=== PATIENT | female | born 1995 | race Two or more races ===

== ENCOUNTER 2024-08-10 19:14 | Inpatient (IN) | payer OTHER ==
[~2024-08-10] VITALS: Ht 160 cm; Wt 102.1 kg
[2024-08-10 18:45] VITALS: BP 107/73
[2024-08-10] MEDS ORDERED: PRENATAL TABLE1 EAC1 PO (19:22)
[2024-08-10] MEDS ORDERED: AMPICILLIN SODIUM 2,000 MG in 0.9 % SODIUM CHLORIDE 100 ML IV SCH (19:26)
[2024-08-10] MEDS ORDERED: RINGERS SOLUTION,LACTATED 1,000 ML IV SCH (19:30)
[2024-08-10] MEDS ORDERED: BETAMETHASONE ACETATE,SOD PHOS 30 MG/5 ML ML IM SCH (20:00)
[2024-08-10 20:35] LABS: URINE APPEARANCE Cloudy; URINE BILIRRUBIN Small (NEGATIVE); URINE BLOOD Moderate; URINE COLOR Dark Yellow; URINE GLUCOSE Negative (NEGATIVE); URINE KETONE Trace (NEGATIVE); URINE LEUKOCYTE Small; URINE NITRATE Negative; URINE PROTEIN 30 (NEGATIVE)
[2024-08-10 20:37] LABS: HEMOGLOBIN 12.6 g/dL (12.0-15.00); MEAN CELL VOLUME 87.2 fL (80.00-100.00); MEAN CORPUSCULAR HEMOGLOBIN 29.6 pg (27.00-32.0); MEAN CORPUSCULAR HGB CONC 33.9 g/dl (32.0-36.0); PLATELET COUNT 325 K/uL (150-450); RED BLOOD COUNT 4.25 M/uL (4.00-6.00); RED CELL DISTRIBUTION WIDTH 13.8 % (11.5-14.5)
[2024-08-10 20:38] LABS: URINE BACTERIA 2357.2 uL (0.0-1933); URINE EPITHELIAL CELLS 43.8 uL (0.0-38.8); URINE RBC 395.8 uL (0.0-20.8); URINE WBC 26.7 uL (0.0-23.2)
[2024-08-10 20:55] LABS: INR 0.96; PARTIAL THROMBOPLASTIN TIME 26.8 SECONDS (22.0-34.0); PROTHROMBIN TIME 10.5 SECONDS (9.0-11.5); URINE CAST 0.29 uL (0.0-1.40)
[2024-08-10 20:56] LABS: URINE CRYSTALS MODERATE /HPF
[2024-08-10 21:01] LABS: ALBUMIN 2.6 gm/dL (3.4-5.0); BILIRUBIN TOTAL 0.23 mg/dL (0.3-1.2); CALCIUM 8.9 mg/dL (8.5-10.1); CREATININE SERUM 0.55 mg/dL (0.55-1.02); GFR 133.61; GLOBULINA 3.6 G/DL (2.4-3.5); TOTAL PROTEIN 6.2 gm/dL (6.4-8.2)
[2024-08-10 23:06] VITALS: BP 92/57
[2024-08-10] MEDS ORDERED: AMPICILLIN SODIUM 2,000 MG VIAL ONE (23:37)
[2024-08-11 04:00] VITALS: BP 88/45
[2024-08-11 06:10] VITALS: BP 94/55; O2SAT 97
== END 2024-08-11 08:46 | disposition left against medical advice (07) | DRG 833 ==
LOC: LDR 19:14
PROVIDERS: ADMIT Obstetrics & Gynecology; ATTEND Obstetrics & Gynecology
PROC: 4A1HXCZ Monitoring of Products of Conception, Cardiac Rate, External Approach (ICD-10-PCS; principal; 2024-08-10)
DX: O26.893 Other specified pregnancy related conditions, third trimester (principal); R10.2 Pelvic and perineal pain; Z3A.32 32 weeks gestation of pregnancy; Z53.29 Procedure and treatment not carried out because of patient's decision for other reasons

== ENCOUNTER 2024-09-06 09:09 | Inpatient (IN) | payer OTHER ==
[~2024-09-06] VITALS: Ht 160 cm; Wt 90.7 kg
[2024-09-06 08:46] VITALS: BP 112/77
[~2024-09-06 09:09] MED LIST: PRENATAL TABLE1 EAC1 PO
[2024-09-06] MEDS ORDERED: CHILDREN'S ASPI81 MG PO (09:29)
[2024-09-06] MEDS ORDERED: ACETAMINOPHEN 500 MG GEL..CAP PO PRN (09:30)
[2024-09-06] MEDS ORDERED: RINGERS SOLUTION,LACTATED 1,000 ML IV SCH (09:30)
[2024-09-06 10:05] LABS: PH,URINE 6.5 (5.0-8.0); URINE APPEARANCE Cloudy; URINE BILIRRUBIN Small (NEGATIVE); URINE BLOOD Large; URINE COLOR Dark Yellow; URINE GLUCOSE Negative (NEGATIVE); URINE LEUKOCYTE Small; URINE NITRATE Negative; URINE PROTEIN 30 (NEGATIVE)
[2024-09-06 10:08] LABS: HEMATOCRIT 37.1 % (36.0-45.00); HEMOGLOBIN 12.5 g/dL (12.0-15.00); MEAN CELL VOLUME 85.9 fL (80.00-100.00); MEAN CORPUSCULAR HEMOGLOBIN 28.8 pg (27.00-32.0); MEAN CORPUSCULAR HGB CONC 33.6 g/dl (32.0-36.0); PLATELET COUNT 304 K/uL (150-450); RED BLOOD COUNT 4.32 M/uL (4.00-6.00); RED CELL DISTRIBUTION WIDTH 14.1 % (11.5-14.5); URINE BACTERIA 401.4 uL (0.0-1933); URINE EPITHELIAL CELLS 23.2 uL (0.0-38.8); URINE RBC 10496.3 uL (0.0-20.8); URINE WBC 23.9 uL (0.0-23.2)
[2024-09-06 10:21] LABS: URINE CAST 0.44 uL (0.0-1.40); URINE KETONE >=160 (NEGATIVE)
[2024-09-06 10:22] LABS: URINE CRYSTALS FEW /HPF
[2024-09-06 10:32] LABS: ALBUMIN 2.7 gm/dL (3.4-5.0); BILIRUBIN TOTAL 0.41 mg/dL (0.3-1.2); CALCIUM 9.3 mg/dL (8.5-10.1); CREATININE SERUM 0.79 mg/dL (0.55-1.02); GFR 87.97; GLOBULINA 3.5 G/DL (2.4-3.5); POTASSIUM 4.4 mEq/L (3.5-5.1); TOTAL PROTEIN 6.2 gm/dL (6.4-8.2)
[2024-09-06 11:25] VITALS: BP 112/77
[2024-09-06 12:00] VITALS: BP 106/63
[2024-09-06] MEDS ORDERED: CEFTRIAXONE SODIUM 1,000 MG VIAL IV STA (12:12)
[2024-09-06 15:20] VITALS: BP 102/61
[2024-09-06] MEDS ORDERED: ACYCLOVIR 400 MG TABLET PO SCH (17:00)
[2024-09-06 19:30] VITALS: BP 95/60
[2024-09-06] MEDS ORDERED: CEFTRIAXONE SODIUM 1,000 MG VIAL IV SCH (21:00)
[2024-09-06 23:15] VITALS: BP 110/77
[2024-09-07] MEDS ORDERED: CEFTRIAXONE SODIUM 1,000 MG VIAL IV SCH (05:00)
[2024-09-07] MEDS ORDERED: PNV,CALCIUM 72/IRON/FOLIC ACID 1 TAB TABLET PO SCH (09:00)
== END 2024-09-07 00:44 | disposition left against medical advice (07) | DRG 833 ==
LOC: OBS/DEL 09:09 → LDR 11:37 → OBS/DEL 11:37 → LDR 09-07 00:44
PROVIDERS: ADMIT Obstetrics & Gynecology; ATTEND Obstetrics & Gynecology
PROC: 4A1HXCZ Monitoring of Products of Conception, Cardiac Rate, External Approach (ICD-10-PCS; principal; 2024-09-06)
PROC: BT43ZZZ Ultrasonography of Bilateral Kidneys (ICD-10-PCS; 2024-09-06)
DX: O23.03 Infections of kidney in pregnancy, third trimester (principal); Z53.29 Procedure and treatment not carried out because of patient's decision for other reasons